=== PATIENT | male | born 1955 | race Caucasian/White ===

== ENCOUNTER → 2017-03-30 | Outpatient (CLI) | payer OTHER ==
[~2017-03-30] MED LIST: CZR25 PO; METO50TA7 PO; [UNRECOGNIZED DRUG - OTHER]
--- NOTE | 2017-03-30 10:05 | DIAGNOSTIC IMAGING REPORT ---
LEFT SHOULDER CT CT DOSE: 323.21 mGycm HISTORY: Left SHOULDER PAIN TECHNIQUE: Multiaxial CT images of the left shoulder were performed and reformatted in the sagittal and coronal plane without the use of contrast. A dose lowering technique was utilized adhering to the principles of ALARA. COMPARISON: None. FINDINGS: No fracture or dislocation within the left shoulder. No soft tissue swelling within the left shoulder. No radiopaque foreign bodies. No glenohumeral joint effusion. Mild to moderate AC joint arthrosis demonstrated by cartilage space narrowing. Cartilage spaces are maintained at the glenohumeral joint. Subacromial space is maintained. There is near nondiagnostic evaluation of the rotator cuff due to the CT technique. There does not appear to be significant fluid in the subacromial/subdeltoid bursa to suggest a full-thickness tear. No significant fatty atrophy of the rotator cuff muscles. No evidence for large full-thickness tear. Of note, a small full-thickness tear or partial thickness tear of the rotator cuff would unlikely be visualized due to the CT technique. IMPRESSION: 1. No acute fracture or dislocation within the left shoulder. 2. No evidence for large full-thickness rotator cuff tear. 3. [id number] AC joint arthrosis. Electronically signed by: Hakeem Gomez M.D. 03/30/2017 10:03 AM Dictated Date/Time: 03/30/2017 9:59 AM
== END | disposition home or self-care (01) ==
LOC: C.CTS 09:42
DX: M25.512 Pain in left shoulder (principal)

== ENCOUNTER → 2017-04-26 | Outpatient (CLI) | payer OTHER ==
--- NOTE | 2017-04-26 13:20 | DIAGNOSTIC IMAGING REPORT ---
LEFT SHOULDER INJECTION UNDER FLUOROSCOPIC GUIDANCE CLINICAL HISTORY: Left shoulder pain. Injection for CT arthrogram. PROCEDURE: The risks, benefits, and alternatives to the procedure were discussed with the patient. Written informed consent was obtained. The patient was placed supine on the fluoroscopy table, and a left shoulder injection was performed under fluoroscopic guidance. The area was prepped and draped in the usual sterile fashion. The skin and soft tissues anesthetized with local 1% lidocaine. The left shoulder joint was accessed utilizing a 22-gauge needle, and approximately 6 cc of a mixture of Optiray 300 was injected into the joint space under fluoroscopic guidance. There was normal distention of the capsule. The procedure was well tolerated and without immediate complication. The patient was then transferred to CT for CT arthrography. FLUOROSCOPY TIME: 0.2 minutes. IMPRESSION: Unremarkable injection of the left shoulder under fluoroscopic guidance. Electronically signed by: Dontrell Magana M.D. 04/26/2017 1:18 PM Dictated Date/Time: 04/26/2017 1:17 PM
--- NOTE | 2017-04-26 13:37 | DIAGNOSTIC IMAGING REPORT ---
CT ARTHROGRAM OF THE LEFT SHOULDER CLINICAL HISTORY: Left shoulder pain. COMPARISON STUDY: CT of the left shoulder dated 03/30/2017. TECHNIQUE: Following the intra-articular administration of gadolinium contrast, CT arthrogram of the left shoulder is performed from the lower neck to the humeral shaft. Images are reviewed in the axial, sagittal, and coronal planes. Intra-articular contrast was administered without complication. A dose lowering technique was utilized adhering to the principles of ALARA. CT DOSE: 780.54 mGy.cm FINDINGS: The skeletal structures are well mineralized. No fracture is identified in the left shoulder. The glenohumeral and acromioclavicular joints appear maintained. Mild productive change is noted at the acromioclavicular joint. The joint space is well distended with intra-articular contrast. The long head of the biceps tendon appears intact and is located in the bicipital groove. The anchor appears intact. Mild degenerative fraying is seen along the superior margin of the labrum. No significant labral tear is identified. There is no evidence of full-thickness rotator cuff tear. No contrast is seen in the subacromial or subdeltoid bursal space. The regional musculature is normal in bulk and attenuation. There is no evidence of atrophy. Induration and tiny foci of subcutaneous gas anteriorly are related to contrast injection. There is no left axillary adenopathy. There is atherosclerotic calcification of the coronary arteries and the left carotid bulb. The visualized left lung parenchyma appears clear. IMPRESSION: 1. No fracture or dislocation is seen. 2. There is no full-thickness rotator cuff tear. 3. Mild degenerative fraying is seen along the anterior aspect of the labrum. No large labral tear is identified. Electronically signed by: Dontrell Magana M.D. 04/26/2017 1:35 PM Dictated Date/Time: 04/26/2017 1:19 PM
== END | disposition home or self-care (01) ==
LOC: C.RAD 11:02
DX: M25.512 Pain in left shoulder (principal)

== ENCOUNTER → 2017-06-27 | Outpatient (CLI) | payer OTHER | END | disposition home or self-care (01) | LOC: C.CPL 10:49 | DX: M75.02 Adhesive capsulitis of left shoulder (principal) ==